=== PATIENT | female | born 1985 | race Caucasian/White ===

== ENCOUNTER 2019-02-13 05:11 | Inpatient (IN) | payer BC ==
[2019-02-13] MEDS ORDERED: Butorphanol 1 MG/ML SDV IVPUSH PRN (05:38)
[2019-02-13] MEDS ORDERED: Sodium Chloride 0.9% 10 ML SDV IV PRN (05:38)
[2019-02-13] MEDS ORDERED: Lidocaine 1% 50 ML MDV INJECT PRN (05:38)
[2019-02-13] MEDS ORDERED: Carboprost Tromethamine 250 MCG/1 ML Amp IM PRN (05:38)
[2019-02-13] MEDS ORDERED: Ondansetron 4 MG/2 ML SDV IV PRN (05:38)
[2019-02-13] MEDS ORDERED: Sodium Chloride 0.9% 10 ML Syringe FLUSH PRN (05:38)
[2019-02-13] MEDS ORDERED: Misoprostol 200 MCG Tab PO PRN (05:38)
[2019-02-13] MEDS ORDERED: Water For Irrigation,Sterile 1,000 ML Container IRR PRN (05:38)
[2019-02-13] MEDS ORDERED: Tranexamic Acid 1,000 MG in Sodium Chloride 0.9% 100 ML IV PRN (05:38)
[2019-02-13] MEDS ORDERED: Sodium Chloride 0.9% 2.5 ML Syringe FLUSH PRN (05:38)
[2019-02-13] MEDS ORDERED: Methylergonovine 0.2 MG/1 ML Amp IM PRN (05:38)
[2019-02-13] MEDS ORDERED: Misoprostol 25 MCG (1/4 of 100 MCG) Tab VAG PRN ×2 (05:42)
[2019-02-13] MEDS ORDERED: Terbutaline 1 MG/ML SDV SUBCUT PRN (05:42)
[2019-02-13] MEDS ORDERED: Oxytocin/0.9 % Sodium Chloride 30 UNIT/500 ML BAG IV SCH ×2 (05:45)
[2019-02-13] MEDS ORDERED: Lactated Ringers 1,000 ML IV SCH (05:45)
--- NOTE | 2019-02-13 09:47 | PCM.DEL ---
L & D Note - General Info Date of Service: 02/13/19 Mother's Due Date: 02/13/19 - Delivery Note Labor: Spontaneous Cervical Ripening Method: Oxytocin Delivery Outcome: Livebirth Infant Delivery Method: Spontaneous Vaginal Delivery-Single Presentation: Unable to Assess Nuchal Cord: None Prep: Other Anesthesia Type: Local Anesthetic: Lidocaine (Xylocaine) 0.5% Plain Local Anesthetic Volume: Other (8 ml) Amniotic Fluid Description: Clear Episiotomy Type: None Laceration: 2nd Degree Suture type: Vicryl Suture size: 3-0 Placenta: Intact, Spontaneous Cord: 3 Vessels Estimated Blood Loss: 200 Resuscitation Needed: No [place]: Suctioned Score 1 min: 8 Score 5 min: 9 Delivery Comments (Free Text/Narrative):: precipitous delivery liveborn male 04/17 weight 3420 grams. - General Info Date of Service: 02/13/19 - Patient Data Weight - Most Recent: 65.317 kg Lab Results Last 24 Hours: Laboratory Results - last 24 hr 02/13/19 02/13/19 Range/Units 06:00 06:00 WBC 10.31 (4.0-11.0) K/uL RBC 3.75 L (4.30-5.90) M/uL Hgb 10.5 L (12.0-16.0) g/dL Hct 31.1 L (36.0-46.0) % MCV 82.9 (80.0-98.0) fL MCH 28.0 (27.0-32.0) pg MCHC 33.8 (31.0-37.0) g/dL RDW Std Deviation 39.7 (28.0-62.0) fl RDW Coeff of Parth 13 (11.0-15.0) % Plt Count 153 (150-400) K/uL MPV 9.50 (7.40-12.00) fL Nucleated RBC % 0.0 /100WBC Nucleated RBCs # 0 K/uL Blood Type A POSITIVE Antibody Screen NEGATIVE Med Orders - Current: Current Medications Butorphanol Tartrate (Stadol) 1 mg IVPUSH Q1H PRN PRN Reason: Pain Last Admin: 02/13/19 08:59 Dose: 1 mg Carboprost Tromethamine (Hemabate Ds) 250 mcg IM ASDIRECTED PRN PRN Reason: Post Hemorrhage Lactated Ringer's (Ringers, Lactated) 1,000 mls @ 150 mls/hr IV ASDIRECTED MIS[facility] Last Admin: 02/13/19 06:23 Dose: 150 mls/hr Oxytocin/Sodium Chloride (Oxytocin 30 Unit/500 Ml-Ns) 30 unit in 500 mls @ 999 mls/hr IV TITRATE [facility]IS[facility] Tranexamic Acid 1,000 mg/ (Sodium Chloride) 110 mls @ 660 mls/hr IV ONETIME PRN PRN Reason: Bleeding Oxytocin/Sodium Chloride (Oxytocin 30 Unit/500 Ml-Ns) 30 unit in 500 mls @ 2 mls/hr IV TITRATE MIS[facility]; Protocol Last Titration: 02/13/19 08:16 Dose: 10 munits/min, 10 mls/hr Lidocaine HCl (Xylocaine 1%) 50 ml INJECT ONETIME PRN PRN Reason: Laceration repair Methylergonovine Maleate (Methergine) 0.2 mg IM ASDIRECTED PRN PRN Reason: Post Hemorrhage Misoprostol (Cytotec) 200 mcg PO ONETIME PRN PRN Reason: Post Hemorrhage Misoprostol (Cytotec) 25 mcg VAG ONETIME PRN PRN Reason: Cervical Ripening Misoprostol (Cytotec) 25 mcg VAG Q4H PRN PRN Reason: Cervical Ripening Ondansetron HCl (Zofran) 4 mg IV Q6H PRN PRN Reason: Nausea/Vomiting Sodium Chloride (Saline Flush) 10 ml FLUSH ASDIRECTED PRN PRN Reason: Keep Vein Open Sodium Chloride (Saline Flush) 2.5 ml FLUSH ASDIRECTED PRN PRN Reason: Keep Vein Open Sodium Chloride (Normal Saline) 10 ml IV ASDIRECTED PRN PRN Reason: IV Use Sterile Water (Sterile Water For Irrigation) 1,000 ml IRR ASDIRECTED PRN PRN Reason: delivery Terbutaline Sulfate (Brethine) 0.25 mg SUBCUT ASDIRECTED PRN PRN Reason: Tacysystole - Problem List & Annotations (1) Vaginal delivery SNOMED Code(s): 716220296 Code(s): O80 - ENCOUNTER FOR FULL-TERM UNCOMPLICATED DELIVERY Status: Acute Current Visit: No - Problem List Review Problem List Initiated/Reviewed/Updated: Yes - My Orders Last 24 Hours: My Active Orders 02/13/19 05:38 Patient Status [ADT] Routine May Shower [RC] ASDIRECTED Notify Provider [RC] PRN Up ad Khadijah [RC] ASDIRECTED Vital Signs [RC] PER UNIT ROUTINE Butorphanol [Stadol] 1 mg IVPUSH Q1H PRN Carboprost Tromethamine [Hemabate DS] 250 mcg IM ASDIRECTED PRN Lidocaine 1% [Xylocaine 1%] 50 ml INJECT ONETIME PRN Methylergonovine [Methergine] 0.2 mg IM ASDIRECTED PRN Ondansetron [Zofran] 4 mg IV Q6H PRN Sodium Chloride 0.9% [Normal Saline] 10 ml IV ASDIRECTED PRN Sodium Chloride 0.9% [Saline Flush] 10 ml FLUSH ASDIRECTED PRN Sodium Chloride 0.9% [Saline Flush] 2.5 ml FLUSH ASDIRECTED PRN Tranexamic Acid [Cyklokapron] 1,000 mg Sodium Chloride 0.9% [Normal Saline] 100 ml IV ONETIME Water For Irrigation,Sterile [Sterile Water for Irrigation] 1,000 ml IRR ASDIRECTED PRN miSOPROStol [Cytotec] 200 mcg PO ONETIME PRN Scalp Electrode [WOMSER] Per Unit Routine Peripheral IV Insertion Adult [OM.PC] Routine Resuscitation Status Routine 02/13/19 05:42 Bedrest Bathroom Privileges [RC] ASDIRECTED Communication Order [RC] ASDIRECTED Communication Order [RC] ASDIRECTED Notify Provider [RC] PRN Notify Provider [RC] PRN Notify Provider [RC] STAT Oxygen Therapy [RC] ASDIRECTED Vital Signs [RC] PER UNIT ROUTINE Terbutaline [Brethine] 0.25 mg SUBCUT ASDIRECTED PRN miSOPROStol [Cytotec] 25 mcg VAG ONETIME PRN miSOPROStol [Cytotec] 25 mcg VAG Q4H PRN 02/13/19 05:45 Lactated Ringers [Ringers, Lactated] 1,000 ml IV ASDIRECTED Oxytocin/0.9 % Sodium Chloride [Oxytocin 30 Unit/500 ML-NS] 30 unit in 500 ml IV TITRATE Oxytocin/0.9 % Sodium Chloride [Oxytocin 30 Unit/500 ML-NS] 30 unit in 500 ml IV TITRATE Medication Administration Instruction [OM.PC] Q3H 02/13/19 Breakfast Clear Liquid Diet [DIET]
[2019-02-13] MEDS ORDERED: Bisacodyl 10 MG Supp RECTAL PRN (09:48)
[2019-02-13] MEDS ORDERED: Witch Hazel Medicated Pads 40/Jar TOP PRN (09:48)
[2019-02-13] MEDS ORDERED: Benzocaine/Menthol 20%-0.5% Spray 78 GM Cannister TOP PRN (09:48)
[2019-02-13] MEDS ORDERED: oxyCODONE 5 MG Tab PO PRN (09:48)
[2019-02-13] MEDS ORDERED: Ibuprofen 400 MG Tab PO PRN (09:48)
[2019-02-13] MEDS ORDERED: Docusate Sodium 100 MG Cap PO PRN (09:48)
[2019-02-13] MEDS ORDERED: Acetaminophen 500 MG Tab PO PRN ×2 (09:48)
[2019-02-13] MEDS ORDERED: Lanolin 100% Cream 7 GM Tube TOP PRN (09:48)
[2019-02-13] MEDS ORDERED: Ondansetron 4 MG/2 ML SDV IVPUSH ONE (09:50)
[2019-02-13] MEDS: Tobramycin 0.3% Ophth Oint 3.5 GM Tube EYEBOTH SCH ×3 (11:56→23:55)
--- NOTE | 2019-02-13 15:33 | OR ---
SURGEON: Caro Cisneros M.D. DATE OF PROCEDURE: 02/13/2019 PREOPERATIVE DIAGNOSES: A 39-week intrauterine , history of precipitous delivery. POSTOPERATIVE DIAGNOSES: A 39-week intrauterine , history of precipitous delivery. PROCEDURES: Term spontaneous vaginal delivery, repair of second-degree laceration. PRIMARY SURGEON: Caro Cisneros MD. ANESTHESIA: Local. ESTIMATED BLOOD LOSS: Less than 300 mL. FINDINGS: Liveborn male, scores 8 and 9, weighing 3420 g. Placenta spontaneous, Schultze intact, with 3 vessels. Second-degree perineal laceration repaired. COMPLICATIONS: None known. DISPOSITION: Mother and baby are in LDR in good condition. BRIEF HISTORY: This is a 33-year-old female. She is G3, P 2-0-0-2. She has a history of precipitous deliveries and presents at 39 weeks for induction of labor to prevent precipitous labor at home. She is blood type A positive, group B strep negative. She presents to Labor and Delivery 2 to 3 cm dilated. She received Pitocin. She progressed to 4 cm, 80%. Artificial rupture of membranes was performed at approximately 8:40, and she received Stadol. Shortly after 9 a.m., she progressed rapidly to complete, and she precipitously delivered the baby at 9:21. I arrived at 9:24, and the cord was still intact. As she had had Stadol, I did quickly clamp and cut the cord. Cord blood was collected for cord ABGs as well as routine cord blood sampling, and Pitocin was initiated after delivery of the to assist with the placenta, which was delivered spontaneously, Schultze intact, with 3 vessels. Upon inspection of the pelvis and perineum, there were no periurethral, vaginal sidewall, cervical, or rectal laceration. There was a small second-degree perineal laceration. 8 mL of quarter of 1% lidocaine was injected and 3-0 Vicryl was utilized to reapproximate the perineal tissue, followed with a subcuticular suture of the same. Final sponge, needle, and instrument counts were correct. There were no complications. Mother and baby are in LDR in good condition. SHANELL / GENARO /[id number]
[2019-02-13] MEDS: Ibuprofen 800 MG Tab PO PRN ×2 (16:45→23:55)
[2019-02-14] MEDS ORDERED: Ondansetron 4 MG/2 ML SDV IVPUSH PRN (00:14)
[2019-02-14] MEDS ORDERED: Ondansetron 4 MG Tab PO PRN (00:39)
[2019-02-14] MEDS: Tobramycin 0.3% Ophth Oint 3.5 GM Tube EYEBOTH SCH (05:56)
[2019-02-14] MEDS: Ibuprofen 800 MG Tab PO PRN (07:54)
[2019-02-14 07:56] VITALS: BP 95/62
--- NOTE | 2019-02-14 09:52 | PCM.PN ---
- General Info Date of Service: 02/14/19 (PPD#1. Doing well. No c/o. Ready for discharge.) Functional Status: Reports: Pain Controlled, Tolerating Diet, Ambulating, Urinating - Review of Systems General: Reports: No Symptoms Gastrointestinal: Reports: No Symptoms Genitourinary: Reports: No Symptoms - Patient Data Vitals - Most Recent: Last Vital Signs Temp 36.1 C 02/14/19 07:20 Pulse 72 02/14/19 07:20 Resp 16 02/14/19 07:20 BP 95/62 02/14/19 07:20 Pulse Ox 98 02/14/19 07:20 Weight - Most Recent: 65.317 kg Lab Results Last 24 Hours: Laboratory Results - last 24 hr 02/13/19 02/14/19 Range/Units 09:21 05:55 Hgb 9.4 L (12.0-16.0) g/dL Hct 27.8 L (36.0-46.0) % Cord ABG pH 7.218 (7.18-7.38) Cord ABG Base Excess -6 (-10--2) Cord VBG pH -7.280 L (7.25-7.45) Cord VBG Base Excess -5 (-10--2) Med Orders - Current: Current Medications Acetaminophen (Tylenol Extra Strength) 500 mg PO Q4H PRN PRN Reason: Pain Acetaminophen (Tylenol Extra Strength) 1,000 mg PO Q4H PRN PRN Reason: Pain Benzocaine/Menthol (Dermoplast Pain Relief 20%-0.5% Robert) 78 gm TOP ASDIRECTED PRN PRN Reason: Perineal Comfort Measure Last Admin: 02/13/19 11:48 Dose: 1 canister Bisacodyl (Dulcolax) 10 mg RECTAL ONETIME PRN PRN Reason: Constipation Docusate Sodium (Colace) 100 mg PO BID PRN PRN Reason: Constipation Last Admin: 02/14/19 07:56 Dose: 100 mg Emollient Ointment (Lansinoh Hpa) 0 gm TOP ASDIRECTED PRN PRN Reason: Sore Nipples Last Admin: 02/13/19 20:40 Dose: 1 tube Ibuprofen (Motrin) 400 mg PO Q4H PRN PRN Reason: Pain Ibuprofen (Motrin) 800 mg PO Q6H PRN PRN Reason: Pain Last Admin: 02/14/19 07:54 Dose: 800 mg Ondansetron HCl (Zofran) 4 mg PO Q6H PRN PRN Reason: Nausea/Vomiting Last Admin: 02/14/19 00:54 Dose: 4 mg Oxycodone HCl (Oxycodone) 5 mg PO Q2H PRN PRN Reason: Pain Tobramycin (Tobrex 0.3% Ophth Oint) 0 gm EYEBOTH QID [facility] Last Admin: 02/14/19 05:56 Dose: 1 applic [place] (Tucks) 1 pad TOP ASDIRECTED PRN PRN Reason: comfort care Discontinued Medications Butorphanol Tartrate (Stadol) 1 mg IVPUSH Q1H PRN PRN Reason: Pain Last Admin: 02/13/19 08:59 Dose: 1 mg Carboprost Tromethamine (Hemabate Ds) 250 mcg IM ASDIRECTED PRN PRN Reason: Post Hemorrhage Lactated Ringer's (Ringers, Lactated) 1,000 mls @ 150 mls/hr IV ASDIRECTED [facility] Last Admin: 02/13/19 06:23 Dose: 150 mls/hr Oxytocin/Sodium Chloride (Oxytocin 30 Unit/500 Ml-Ns) 30 unit in 500 mls @ 999 mls/hr IV TITRATE [facility] Tranexamic Acid 1,000 mg/ (Sodium Chloride) 110 mls @ 660 mls/hr IV ONETIME PRN PRN Reason: Bleeding Oxytocin/Sodium Chloride (Oxytocin 30 Unit/500 Ml-Ns) 30 unit in 500 mls @ 2 mls/hr IV TITRATE [facility]; Protocol Last Titration: 02/13/19 08:16 Dose: 10 munits/min, 10 mls/hr Lidocaine HCl (Xylocaine 1%) 50 ml INJECT ONETIME PRN PRN Reason: Laceration repair Methylergonovine Maleate (Methergine) 0.2 mg IM ASDIRECTED PRN PRN Reason: Post Hemorrhage Misoprostol (Cytotec) 200 mcg PO ONETIME PRN PRN Reason: Post Hemorrhage Misoprostol (Cytotec) 25 mcg VAG ONETIME PRN PRN Reason: Cervical Ripening Misoprostol (Cytotec) 25 mcg VAG Q4H PRN PRN Reason: Cervical Ripening Ondansetron HCl (Zofran) 4 mg IV Q6H PRN PRN Reason: Nausea/Vomiting Last Admin: 02/13/19 09:53 Dose: 4 mg Ondansetron HCl (Zofran) 4 mg IVPUSH ONETIME ONE Stop: 02/13/19 09:51 Ondansetron HCl (Zofran) 4 mg IVPUSH Q6H PRN PRN Reason: Nausea/Vomiting Sodium Chloride (Saline Flush) 10 ml FLUSH ASDIRECTED PRN PRN Reason: Keep Vein Open Sodium Chloride (Saline Flush) 2.5 ml FLUSH ASDIRECTED PRN PRN Reason: Keep Vein Open Sodium Chloride (Normal Saline) 10 ml IV ASDIRECTED PRN PRN Reason: IV Use Sterile Water (Sterile Water For Irrigation) 1,000 ml IRR ASDIRECTED PRN PRN Reason: delivery Last Admin: 02/13/19 09:53 Dose: 1,000 ml Terbutaline Sulfate (Brethine) 0.25 mg SUBCUT ASDIRECTED PRN PRN Reason: Tacysystole - Exam General: Alert, Oriented, Cooperative, No Acute Distress Lungs: Normal Respiratory Effort GI/Abdominal Exam: Soft, Non-Tender (uterus firm and non-tender below uterus.) - Problem List Review Problem List Initiated/Reviewed/Updated: Yes - My Orders Last 24 Hours: My Active Orders 02/14/19 00:39 Ondansetron [Zofran] 4 mg PO Q6H PRN - Assessment Assessment:: Normal PP recovery. - Plan Plan:: D/C to home. Precautions given. F/U 6 weeks.
--- NOTE | 2019-02-14 09:56 | PCM.DCSUM1 ---
Discharge Summary - Hospital Course Diagnosis: Stroke: No - Discharge Data Discharge Date: 02/14/19 Discharge Disposition: Home, Self-Care 01 Condition: Good - Patient Instructions Diet: Usual Diet as Tolerated Driving: May Drive Today Showering/Bathing: January Shower Notify Provider of: Fever, Increased Pain - Discharge Plan *PRESCRIPTION DRUG MONITORING PROGRAM REVIEWED*: No *COPY OF PRESCRIPTION DRUG MONITORING REPORT IN PATIENT OSCAR: No Home Medications: Home Meds Vit No.130/Iron/FA [ Tablet] 02/22/14 [History] Desvenlafaxine Succinate [Pristiq] 02/13/19 [History] Tobramycin [Tobrex Ophth Oint] 1 applic OP QID 02/13/19 [History] - Discharge Summary/Plan Comment DC Time >30 min.: No - Patient Data Vitals - Most Recent: Last Vital Signs Temp 36.1 C 02/14/19 07:20 Pulse 72 02/14/19 07:20 Resp 16 02/14/19 07:20 BP 95/62 02/14/19 07:20 Pulse Ox 98 02/14/19 07:20 Weight - Most Recent: 65.317 kg Lab Results - Last 24 hrs: Laboratory Results - last 24 hr 02/13/19 02/14/19 Range/Units 09:21 05:55 Hgb 9.4 L (12.0-16.0) g/dL Hct 27.8 L (36.0-46.0) % Cord ABG pH 7.218 (7.18-7.38) Cord ABG Base Excess -6 (-10--2) Cord VBG pH -7.280 L (7.25-7.45) Cord VBG Base Excess -5 (-10--2) Med Orders - Current: Current Medications Acetaminophen (Tylenol Extra Strength) 500 mg PO Q4H PRN PRN Reason: Pain Acetaminophen (Tylenol Extra Strength) 1,000 mg PO Q4H PRN PRN Reason: Pain Benzocaine/Menthol (Dermoplast Pain Relief 20%-0.5% [place]) 78 gm TOP ASDIRECTED PRN PRN Reason: Perineal Comfort Measure Last Admin: 02/13/19 11:48 Dose: 1 canister Bisacodyl (Dulcolax) 10 mg RECTAL ONETIME PRN PRN Reason: Constipation Docusate Sodium (Colace) 100 mg PO BID PRN PRN Reason: Constipation Last Admin: 02/14/19 07:56 Dose: 100 mg Emollient Ointment (Lansinoh Hpa) 0 gm TOP ASDIRECTED PRN PRN Reason: Sore Nipples Last Admin: 02/13/19 20:40 Dose: 1 tube Ibuprofen (Motrin) 400 mg PO Q4H PRN PRN Reason: Pain Ibuprofen (Motrin) 800 mg PO Q6H PRN PRN Reason: Pain Last Admin: 02/14/19 07:54 Dose: 800 mg Ondansetron HCl (Zofran) 4 mg PO Q6H PRN PRN Reason: Nausea/Vomiting Last Admin: 02/14/19 00:54 Dose: 4 mg Oxycodone HCl (Oxycodone) 5 mg PO Q2H PRN PRN Reason: Pain Tobramycin (Tobrex 0.3% Ophth Oint) 0 gm EYEBOTH QID [facility] Last Admin: 02/14/19 05:56 Dose: 1 applic [place] (Tucks) 1 pad TOP ASDIRECTED PRN PRN Reason: comfort care Discontinued Medications Butorphanol Tartrate (Stadol) 1 mg IVPUSH Q1H PRN PRN Reason: Pain Last Admin: 02/13/19 08:59 Dose: 1 mg Carboprost Tromethamine (Hemabate Ds) 250 mcg IM ASDIRECTED PRN PRN Reason: Post Hemorrhage Lactated Ringer's (Ringers, Lactated) 1,000 mls @ 150 mls/hr IV ASDIRECTED [facility] Last Admin: 02/13/19 06:23 Dose: 150 mls/hr Oxytocin/Sodium Chloride (Oxytocin 30 Unit/500 Ml-Ns) 30 unit in 500 mls @ 999 mls/hr IV TITRATE [facility] Tranexamic Acid 1,000 mg/ (Sodium Chloride) 110 mls @ 660 mls/hr IV ONETIME PRN PRN Reason: Bleeding Oxytocin/Sodium Chloride (Oxytocin 30 Unit/500 Ml-Ns) 30 unit in 500 mls @ 2 mls/hr IV TITRATE [facility]; Protocol Last Titration: 02/13/19 08:16 Dose: 10 munits/min, 10 mls/hr Lidocaine HCl (Xylocaine 1%) 50 ml INJECT ONETIME PRN PRN Reason: Laceration repair Methylergonovine Maleate (Methergine) 0.2 mg IM ASDIRECTED PRN PRN Reason: Post Hemorrhage Misoprostol (Cytotec) 200 mcg PO ONETIME PRN PRN Reason: Post Hemorrhage Misoprostol (Cytotec) 25 mcg VAG ONETIME PRN PRN Reason: Cervical Ripening Misoprostol (Cytotec) 25 mcg VAG Q4H PRN PRN Reason: Cervical Ripening Ondansetron HCl (Zofran) 4 mg IV Q6H PRN PRN Reason: Nausea/Vomiting Last Admin: 02/13/19 09:53 Dose: 4 mg Ondansetron HCl (Zofran) 4 mg IVPUSH ONETIME ONE Stop: 02/13/19 09:51 Ondansetron HCl (Zofran) 4 mg IVPUSH Q6H PRN PRN Reason: Nausea/Vomiting Sodium Chloride (Saline Flush) 10 ml FLUSH ASDIRECTED PRN PRN Reason: Keep Vein Open Sodium Chloride (Saline Flush) 2.5 ml FLUSH ASDIRECTED PRN PRN Reason: Keep Vein Open Sodium Chloride (Normal Saline) 10 ml IV ASDIRECTED PRN PRN Reason: IV Use Sterile Water (Sterile Water For Irrigation) 1,000 ml IRR ASDIRECTED PRN PRN Reason: delivery Last Admin: 02/13/19 09:53 Dose: 1,000 ml Terbutaline Sulfate (Brethine) 0.25 mg SUBCUT ASDIRECTED PRN PRN Reason: Tacysystole
== END 2019-02-14 12:00 | disposition home or self-care (01) | DRG 560 ==
LOC: MW.OBCHECK 05:11 → MW.OB 05:13 → MW.OBCHECK 05:38 → OBSVTOIN 09:21 → MW.OB 12:09
PROVIDERS: ADMIT Obstetrics & Gynecology; ATTEND Obstetrics & Gynecology
PROC: 10E0XZZ Delivery of Products of Conception, External Approach (ICD-10-PCS; principal; 2019-02-13)
PROC: 3E033VJ Introduction of Other Hormone into Peripheral Vein, Percutaneous Approach (ICD-10-PCS; 2019-02-13)
PROC: 0KQM0ZZ Repair Perineum Muscle, Open Approach (ICD-10-PCS; 2019-02-13)
PROC: 10907ZC Drainage of Amniotic Fluid, Therapeutic from Products of Conception, Via Natural or Artificial Opening (ICD-10-PCS; 2019-02-13)
PROC: 4A1HXCZ Monitoring of Products of Conception, Cardiac Rate, External Approach (ICD-10-PCS; 2019-02-13)
DX: O99.344 Other mental disorders complicating childbirth (principal); F41.9 Anxiety disorder, unspecified; F32.9 Major depressive disorder, single episode, unspecified; O99.284 Endocrine, nutritional and metabolic diseases complicating childbirth; E04.1 Nontoxic single thyroid nodule; O76 Abnormality in fetal heart rate and rhythm complicating labor and delivery; Z37.0 Single live birth; Z3A.39 39 weeks gestation of pregnancy
CPT/HCPCS: 36415; 59025; 59409; 82803; 85014; 85018; 85027; 86850; 86900; 86901; A9270-GY; J0595; J2405; J2590; J7120